=== PATIENT | female | born 1985 | race Caucasian/White ===

== ENCOUNTER 2019-09-26 19:19 | Emergency (ER) | payer BC ==
--- NOTE | 2019-09-26 19:42 | EDM.PDOC ---
ED HPI GENERAL MEDICAL PROBLEM - General Chief Complaint: Neurological Problem Stated Complaint: [facility] Time Seen by Provider: 09/26/19 19:22 Source of Information: Reports: Patient, EMS History Limitations: Reports: No Limitations - History of Present Illness INITIAL COMMENTS - FREE TEXT/NARRATIVE: Mrs. Garrido is a very pleasant 33-year-old woman with no chronic medical problems, on no medications, who is now brought to the ED by EMS after suffering what appeared to be a seizure. The patient states that she, her , and 3 kids are on a vacation road trip. The patient was a front seat passenger. They were heading [place] bound, and as they approached [place], the patient apparently suffered a 1 to 2-minute duration generalized tonic-clonic seizure - this according to the patient's , who told EMS, however, the patient's is not currently present in the ED. The patient states that she has no recollection of it whatsoever; the last thing she remembers was being in the car, the next thing she remembers was being in the ambulance. EMS tells me that by the time they arrived, the patient was postictal, but recovering. I was call ed by EMS due to concerns of frequent PVCs to the point of bigeminy. In response, they placed O2 and established an IV, although no medications were given. The patient states that she fainted once, but has never had a seizure. Her last alcohol intake was a couple of nights ago, and while they are traveling, she states that she slept well and is not sleep deprived. There is no history of recreational drug use. No history of traumatic head injury. Here in the ED, the patient is found to be hemodynamically stable, afebrile, saturating 99% on room air. She has been in normal sinus rhythm on the monitoring manager since arrival to the ED. Other than today's event, the patient denies recent fever, chills, sore throat, ear pain, nasal or sinus congestion, cough, dyspnea, chest pain, palpitations, nausea, vomiting, constipation, diarrhea, abdominal pain, urinary symptoms, recent weight gain or weight loss, recent bloody bowel movements or black bowel movements, recent joint aches, headaches, or rashes. The patient's PCP is in [place], [place]. - Related Data Allergies Allergy/AdvReac Type Severity Reaction Status Date / Time egg Allergy Severe Rash Verified 09/26/19 19:25 Home Meds: Home Meds . [No Known Home Meds] 09/26/19 [History] Past Medical History - Past Surgical History HEENT Surgical History: Reports: Myringotomy w Tube(s) (bilateral), Oral Surgery (wisdom teeth extraction) Female Surgical History: Reports: Section (x 1) Musculoskeletal Surgical History: Reports: Other (See Below) (Left bunionectomy) Social & Family History - Tobacco Use Smoking Status *Q: Never Smoker - Alcohol Use Alcohol Use History: Yes Alcohol Use Frequency: Socially - Recreational Drug Use Recreational Drug Use: No - Living Situation & Occupation Living situation: Reports: , with Spouse, with Family (3 kids) Occupation: Employed ([employer]) ED ROS GENERAL - Review of Systems Review Of Systems: Comprehensive ROS is negative, except as noted in HPI. - Physical Exam Exam: See Below Exam Limited By: No Limitations General Appearance: Alert, WD/WN, No Apparent Distress Eye Exam: Bilateral Eye: EOMI, Normal Inspection, PERRL Ears: Normal External Exam, Normal Canal, Hearing Grossly Normal, Normal TMs Nose: Normal Inspection, Normal Mucosa, No Blood Throat/Mouth: Normal Lips, Normal Teeth, Normal Gums, Normal Voice, No Airway Compromise, Evidence of Tongue Biting (contusions to bilateral anterior tongue edge) Head Exam: Atraumatic, Normocephalic Neck: Normal Inspection, Full Range of Motion Respiratory/Chest: No Respiratory Distress, Lungs Clear, Normal Breath Sounds, No Accessory Muscle Use Cardiovascular: Normal Peripheral Pulses, Regular Rate, Rhythm, No Edema, No Gallop, No JVD, No Murmur, No Rub GI/Abdominal: Normal Bowel Sounds, Soft, Non-Tender, No Organomegaly, No Distention, No Abnormal Bruit, No Mass (Female) Exam: Deferred Rectal (Female) Exam: Deferred Neuro Exam (Abbreviated): Alert, Oriented, CN II-XII Intact, Normal Cognition, No Motor/Sensory Deficits Back Exam: Normal Inspection, Full Range of Motion, NT Extremities: Normal Inspection, Normal Range of Motion, No Pedal Edema, Normal Capillary Refill Psychiatric: Normal Affect Skin Exam: Warm, Dry, Intact, Normal Color, No Rash EKG INTERPRETATION EKG Date: 09/26/19 Time: 19:48 Rhythm: NSR Rate (Beats/Min): 87 [place]: Normal P-Wave: Present QRS: Normal ST-T: Normal QT: Normal Comparison: NA - No Prior EKG Course - Vital Signs Last Recorded V/S: Last Vital Signs Temp 36.6 C 09/26/19 19:22 Pulse 93 09/26/19 19:22 Resp 16 09/26/19 19:22 BP 133/69 09/26/19 19:22 Pulse Ox 99 09/26/19 19:22 - Orders/Labs/Meds Orders: Active Orders 24 hr Category Date Time Status EKG Documentation Completion [RC] STAT Care 09/26/19 19:42 Active Labs: Laboratory Tests 09/26/19 09/26/19 09/26/19 Range/Units 19:40 19:45 19:45 WBC 12.11 H (3.98-10.04) K/mm3 RBC 4.42 (3.98-5.22) M/mm3 Hgb 12.7 (11.2-15.7) gm/dl Hct 38.5 (34.1-44.9) % MCV 87.1 (79.4-94.8) fl MCH 28.7 (25.6-32.2) pg MCHC 33.0 (32.2-35.5) g/dl RDW Std Deviation 41.9 (36.4-46.3) fL Plt Count 251 (182-369) K/mm3 MPV 11.2 (9.4-12.3) fl Neutrophils % (Manual) 79 H (40-60) % Band Neutrophils % 0 (0-10) % Lymphocytes % (Manual) 16 L (20-40) % Atypical Lymphs % 0 % Monocytes % (Manual) 3 (2-10) % Eosinophils % (Manual) 2 (0.7-5.8) % Basophils % (Manual) 0 L (0.1-1.2) Platelet Estimate Adequate RBC Morph Comment Normal Sodium 140 (136-145) mEq/L Potassium 3.6 (3.5-5.1) mEq/L Chloride 105 (98-107) mEq/L Carbon Dioxide 25 (21-32) mEq/L Anion Gap 13.6 (5-15) BUN 12 (7-18) mg/dL Creatinine 1.1 H (0.55-1.02) mg/dL Est Cr Clr Drug Dosing 62.23 mL/min Estimated GFR (MDRD) 57 (>60) mL/min BUN/Creatinine Ratio 10.9 L (14-18) Glucose 101 (74-106) mg/dL Calcium 8.9 (8.5-10.1) mg/dL Phosphorus 1.8 L (2.6-4.7) mg/dL Magnesium 2.0 (1.8-2.4) mg/dl Total Bilirubin 0.2 (0.2-1.0) mg/dL AST 16 (15-37) U/L ALT 20 (14-59) U/L Alkaline Phosphatase 81 (46-116) U/L Troponin I < 0.017 (0.00-0.056) ng/mL Total Protein 7.6 (6.4-8.2) g/dl Albumin 3.9 (3.4-5.0) g/dl Globulin 3.7 gm/dL Albumin/Globulin Ratio 1.1 (1-2) Urine Opiates Screen Negative (PMIOHK=781) Ur Buprenorphine Scrn Negative (CUTOFF=10) Ur Oxycodone Screen Negative (TEA6NQ=142) Urine Methadone Screen Negative (CFMZXL=269) Ur Propoxyphene Screen Negative (MZDDWA=396) Ur Barbiturates Screen Negative (WREPIV=660) Ur Tricyclics Screen Negative (FKVUSZ=583) Ur Phencyclidine Scrn Negative (CUTOFF=25) Ur Amphetamine Screen Negative (EUINIT=023) U Methamphetamines Scrn Negative (RABUWG=164) U Benzodiazepines Scrn Negative (ZVSVBJ=715) U Cocaine Metab Screen Negative (PVCECF=643) U Marijuana (THC) Screen Negative (CUTOFF=50) Ethyl Alcohol 0.00 (0.00) gm% Meds: Medications Discontinued Medications Generic Name Dose Route Start Last Admin Trade Name Freq PRN Reason Stop Dose Admin Sodium Phosphate 250 mg 09/26/19 20:20 09/26/19 20:40 Neutra-Phos PO 09/26/19 20:21 250 mg ONETIME ONE Administration - Re-Assessments/Exams Free Text/Narrative Re-Assessment/Exam: 09/26/19 19:37 As above, by history provided by EMS that was given to them by the patient's , who is not currently present, the patient suffered a 1 to 2-minute first-ever generalized tonic-clonic seizure. On examination, she appears to have bitten her tongue, and she is complaining of a headache and fatigue, but no other physical injuries are found. Her mentation appears to be normal, and her neurologic examination is completely normal. As this is a first-time seizure without apparent provocation, current guidelines recommend an imaging study of the head. I have therefore ordered a CT of the head without contrast along with bloodwork and a urine drug screen. The frequent PVCs and bigeminy documented by EMS was likely due to hypoxemia due to the seizure, and not the cause of the seizure itself. Nevertheless, I have ordered a troponin and ECG. 09/26/19 20:21 The patient's phosphorus level returned low at 1.8, therefore I ordered 2050 mg of oral Neutra-Phos. 09/26/19 20:41 The patient's CBC is remarkable for a WBC count elevated at 12.11, but with 0% bandemia. The remainder of her CBC is unremarkable. Her CMP is remarkable for a Cr slightly elevated at 1.1, but with a BUN normal at 12. The remainder of her CMP is unremarkable. Her magnesium level is within normal limits at 2.0. Her troponin is undetectably low. Her EtOH level is 0.00. Her urine drug screen is completely negative. CT of the head without contrast is read by Dr. Toledo as: 1. Nothing acute is appreciated on noncontrast head CT exam. 09/26/19 21:04 Test results discussed with the patient and her (now present). He stated that the seizure likely lasted less than 1 minute. The patient states that she is feeling tired, but otherwise well. I will discharge her home with recommendation that they spend the night at a hotel here in [facility], and that she get plenty of rest and stay adequately hydrated. I recommended that she call her PCP back home in [place] on their way home tomorrow, to get a referral to a Neurologist. I explained to them why we are not starting her on an antiepileptic medication at this time, and they appear to understand that. Departure - Departure Time of Disposition: 21:05 Disposition: Home, Self-Care 01 Condition: Good Clinical Impression: New onset seizure, Hypophosphatemia - Discharge Information *PRESCRIPTION DRUG MONITORING PROGRAM REVIEWED*: Not Applicable *COPY OF PRESCRIPTION DRUG MONITORING REPORT IN PATIENT REJI: Not Applicable Referrals: PCP,Not In Area [Primary Care Provider] - Forms: ED Department Discharge Additional Instructions: You were seen in the emergency room after suffering a seizure lasting less than 1 minute. Work-up in the ER included blood work, a urine drug screen, a CT scan of your head without contrast, and an ECG. Your blood work found that your phosphorus level was low at 1.8. You were given oral phosphate replacement. The remainder of your work-up, including the CT scan of your head, was unremarkable. The cause of your seizure is not known. As discussed, we recommend that you stay in [place] tonight, and get plenty of rest. Stay adequately hydrated, and avoid alcohol. We recommend that you contact the office of your PCP tomorrow, to get a referral to a Neurologist. You should try to see the neurologist at the next available appointment. If any other problems, please do not hesitate to return to the ER. Sepsis Event Note (ED) - Evaluation Sepsis Screening Result: No Definite Risk - Focused Exam Vital Signs: Vital Signs Temp Pulse Resp BP Pulse Ox 09/26/19 19:22 36.6 C 93 16 133/69 99 - My Orders Last 24 Hours: My Active Orders 09/26/19 19:42 EKG Documentation Completion [RC] STAT - Assessment/Plan Last 24 Hours: My Active Orders 09/26/19 19:42 EKG Documentation Completion [RC] STAT
[2019-09-26] MEDS ORDERED: Phosphorus #1 250 MG Tab PO ONE (20:20)
--- NOTE | 2019-09-26 20:38 | CT ---
Head CT Technique: Multiple axial sections through the brain were obtained. Intravenous contrast was not utilized. Comparison: No prior intracranial imaging is available. Findings: Ventricles along with basal cisterns and sulci over the convexities are within normal limits for the patient's age. No abnormal parenchymal densities are seen. No evidence of intracranial hemorrhage. No midline shift or mass effect is seen. Visualized paranasal sinuses and mastoid sinuses show nothing acute. No acute calvarial finding is seen. Impression: 1. Nothing acute is appreciated on noncontrast head CT exam. Diagnostic code #1 Study was dictated in MDT
== END 2019-09-26 21:21 | disposition home or self-care (01) ==
LOC: JD.ED 19:19
DX: R56.9 Unspecified convulsions (principal); E83.39 Other disorders of phosphorus metabolism; Z91.012 Allergy to eggs
CPT/HCPCS: 36415; 70450; 80053; 80306; 80307; 83735; 84100; 84484; 85007; 85027; 93005; 99285; A9270; 93010; 99284